=== PATIENT | female | born 2005 | race Caucasian/White ===

== ENCOUNTER 2025-01-23 23:27 | Inpatient (IN) | payer BC ==
[~2025-01-23] VITALS: Ht 160 cm; Wt 54.6 kg
--- NOTE | 2025-01-24 00:02 | Physician Documentation ---
History of Present Illness Chief Complaint: Abdominal Pain Stated Complaint: REACTION TO MED Time Seen by MD: 23:57 HPI This is a very pleasant 19-year-old female with a known history of gastroparesis, who was discharged from [facility] earlier today after placing nasal jejunal catheter presents for evaluation of sudden onset right flank pain. No obvious trigger provocation. The particular palliating or aggravating factors were elicited with the patient. Pain is severe. Not migratory, not ripping, not tearing. Did not attempt to treat it. She does report her usual gastroparesis epigastric pain as well, however that is minor. She does report nausea. She feels that this is related to the antibiotics that she was receiving. Denies any chance of . Does not smoke, does not drink, does not do drugs Medication Reconciliation Allergies: Coded Allergies: metoclopramide (Verified Adverse Reaction, Unknown, 01/23/25) palpatations Review of Systems ROS 10 point review of systems was performed and unless noted above in HPI is negative for acute process/complaint. Physical Exam Vital Signs: Source: Temporal, Heart Rate: 99, Respiratory Rate: 15, BP: 123/82, Pulse Oximetry: 98, Weight: 57.450 Physical Exam GENERAL: Awake, alert, oriented, GCS 15, [id number] pain related distress, non-toxic appearing, answers questions, follows commands appropriately. Examined in bed 9., accompanied with a female mixer helper HEENT: Atraumatic, normocephalic, NJ-tube noted in right Nare, pupils equal, extraocular muscles intact, sclerae anicteric, mucus membranes moist, oropharynx is clear, no stridor. NECK: supple, full active range of motion, trachea midline, no thyromegaly, no lymphadenopathy, no JVD. CARDIOVASCULAR: regular rate/rhythm, no murmurs/gallops/rubs, Pulses are 2+ in all extremities and symmetric. Capillary refill less than 2 seconds. PULMONARY: Nonlabored, good air movement ,no respiratory distress, speaking in full sentences, clear to auscultation bilaterally, no wheezing, no ronchi, no rales, no accessory muscle use. GASTROINTESTINAL: Soft, epigastric tenderness to palpation without guarding or rebound, non-distended, normal active bowel sounds, no organomegaly, no pulsatile masses, no CVA tenderness. NEUROLOGIC: Lucid with normal mental status. Normal facial symmetry. Moves all extremities symmetrically and with purpose. No truncal ataxia. Speech is fluid without evidence of dysarthria or aphasia, no focal deficits appreciated. MUSCULOSKELETAL: There is full range of motion of all extremities. There is no joint pain or joint swelling or joint erythema. There is no muscle pain or tenderness or swelling. EXTREMITIES: warm, well-perfused, no cyanosis, no clubbing, no edema, no acute deformities. Skin: warm, dry, no rashes or lesions, no jaundice, no petechiae orpurpura. No ecchymosis. PSYCHIATRIC: Tearful affect, normal insight, normal concentration. Focused exam: [] Progress Results/Orders Results/Orders Orders - NATO DIAZ DO Amylase (01/23/25 23:57) Cbc/Diff (01/23/25 23:57) Lipase (01/23/25 23:57) Urinalysis, Cult If Indicated (01/23/25 23:57) MG (01/23/25 23:57) CMP (01/23/25 23:57) Hcg, Ur Ql (01/23/25 23:57) Hcg Serum Ql (01/23/25 23:57) Ondansetron Inj. (Zofran 4mg/2ml Vial) (01/24/25 00:00) Morphine 4mg/Ml Inj. (Morphine Inj.) (01/24/25 00:00) Drug Screen, Urine (01/23/25 23:57) Vital Signs 01/23/25 23:35 Pulse 99 Resp 15 B/P (MAP) 123/82 Pulse Ox 98 Medical Decision Making Findings Facility Status: ED Holds, [facility] process The plan was discussed with the patient, who demonstrates clear understanding of the plan and is in agreement with the plan unless otherwise noted in the chart. All questions have been answered, all concerns were addressed unless otherwise documented. I was available throughout their ED stay for frequent reassessment and questions . Differential Diagnoses (considered and possible or likely): [Differential diagnosis considered includes acute appendicitis, acute cholecystitis, pancreatitis, gastritis, PUD, diverticulitis, mesenteric ischemia, abdominal aortic aneurysm, bowel obstruction, enteritis, colitis, fecal impaction, volvulus, IBS, inflammatory bowel disease, specific food intolerance, peritonitis, perforated viscous, malignancy, UTI, abscess, and abdominal pain NOS. Pelvic source of pain was also considered including endometritis, dysmenorrhea, ovarian cyst, ovarian torsion, PID, TOA, cervicitis, vaginitis, or uterine fibroid. History, physical exam, and workup exclude many of the more serious causes listed above. ] ??Differential Diagnoses (considered and unlikely, not requiring evaluation currently): [Aortic/great vessels dissection was considered but it is unlikely based on absence of ripping, tearing, migratory chest pain, absence of syncope or focal neurologic deficits, physical examination indicating equal and symmetric pulses.] MDM Data Please see [facility] for the following: Independent Historians and external Records Re view. Historian: [Patient] Independent Historians: ?[Female mixer helper] Medication Management: [Reviewed medication list] Social History and determinants: [Reviewed] Please see the body of the note for the following: Any independent interpretations of ECG, imaging studies. All vitals signs/haemodynamics, ordered tests were independently reviewed and interpreted by myself. Nursing triage complaint and vitals reviewed, additional nursing notes were reviewed as available and I agree unless otherwise noted or documented in contradiction in the chart Vital Signs: Independently reviewed Labs: Independently interpreted Imaging: Independently interpreted Old Medical Records: Independently reviewed, see [facility] for relevant summary and information Pulse Oximetry: [97%] interpreted as [normal on room air] by me [Pelt Grader: [Regular Rate, Regular rhythm, no ectopy, NSR] reviewed and interpreted by me] Additionally notably showing: [Hemodynamics reviewed. Not febrile, not tachycardic, no evidence of hypotension respiratory distress. CBC is normal, however there is 91% neutrophils. Very mild anemia of 11.9. Normal platelets. Chemistry notable for glucose of 244 concerning for new onset diabetes. Lipase is also elevated concerning for mild pancreatitis. She isn't . UA shows glucose in the urine, no evidence of UTI. Toxicology is negative. Given persistent pain, based on shared decision-making with the patient, I made decision to obtain a CT of the abdomen and pelvis. It shows no acute disease. See the orders for] Tests considered but not ordered include: [see above] Social Determinants of Health Impact: Patient was evaluated in [facility] [place] to healthcare due to below par ratio of patient to medical providers. [] Comorbid Conditions Impacting Present Evaluation and Care/Treatment: [Known gastroparesis] Management Discussions with other Healthcare Providers: [Hospitalist regarding admission] Treatment and Disposition Medication Management (Given or considered): [Multiple rounds of pain management]. See EMR for details Consideration for Hospitalization/Escalation/Deescalation of Care: Admission for observation has been considered, for further management of her pain and workup of new onset diabetes. ?ED Course:?[No clinical improvement. Right upper quadrant ultrasound can be obtained during daylight hours on an inpatient side. Patient will require admission to Internal Medicine service for further evaluation and management of their disease process. The case was discussed with [resident] of the admitting service and they were made aware of all the patient's active issues, including the above-mentioned history, physical exam findings, and the diagnostic results, as well as our concerns and suspicions, as well as any possible incidental findings and pending test. They agreed with the admission plan to their service, and agreed to assume responsibility for the patient's ongoing care and management at that point in time. Patient was admitted in [] condition. ] ?Shared decision making:?[] Code status:?FULL Please see the full Electronic Medical Record for full details of nursing documentation, medications list, other records of complete past medical history and conditions, vital signs, laboratory studies, and any radiologic study interpretations by radiologists. Portions of this note were completed using [employer] dictation software and as a result there may exist minor errors in spelling. I have reviewed elements of past family and social history and agree as included in note. Departure Disposition: 09 ADMITTED INPATIENT Admitted to Inpatient Unit: to hospitalist Impression: Primary Impression: Diabetes mellitus, new onset Additional Impressions: Acute pancreatitis Acute right flank pain Intractable pain Condition: Stable Referrals: NO PRIMARY CARE PROVIDER (PCP) Signature Scribe Signature: No scribe Attestation: Date: Jan 24, 2025 Time: 00:02 This note accurately reflects clinical decisions, work performed by myself, Nato Diaz, NATO QUINN DO Jan 24, 2025 00:02
[2025-01-24] MEDS: morphine 4 MG/ML inj SYRINge IV ONE ×2 (00:12→03:37)
[2025-01-24] MEDS: ondansetron/PF 4mg/2ml inj IV ONE (00:13)
[2025-01-24 00:41] LABS: MEAN PLATELET VOLUME 9.2 FL (7.4-10.4); RED CELL DISTRIBUTION WIDTH 13.4 % (11.5-14.5)
[2025-01-24 00:55] LABS: CREATININE 0.55 MG/DL (0.40-0.90); TOTAL CARBON DIOXIDE 23.9 MMOL/L (24-32); eCRCL 142 ML/MIN; eGFR > 90 ML/MIN
[2025-01-24 01:49] LABS: URINE HCG NEGATIVE (NEG)
[2025-01-24 01:49] LABS: HCG SERUM QL NEGATIVE
[2025-01-24 02:00] LABS: URINE AMPHETAMINE SCREEN NEGATIVE (Neg); URINE BARBITUATE SCREEN NEGATIVE (Neg); URINE BENZODIAZEPINES SCREEN NEGATIVE (Neg); URINE CANNABINOID SCREEN NEGATIVE (Neg); URINE COCAINE SCREEN NEGATIVE (Neg); URINE METHADONE SCREEN NEGATIVE (Neg); URINE OPIATE SCREEN NEGATIVE (Neg); URINE PHENCYCLIDINE SCREEN NEGATIVE (Neg)
[2025-01-24 02:02] LABS: LEUKOCYTE ESTERASE ,URINE NEGATIVE (Neg); NITRITES, URINE NEGATIVE (Neg); OCCULT BLOOD,URINE TRACE-INTACT (Neg)
[2025-01-24 02:05] LABS: UA COLLECTION TYPE CLN CATCH MIDSTREAM
[2025-01-24 02:15] LABS: SQUAMOUS EPITHELIAL CELL,UR NONE SEEN /LPF (FEW)
[2025-01-24] MEDS ORDERED: iohexol 300mg/ml 100ml inj. ONE (02:34)
--- NOTE | 2025-01-24 03:15 | RADIOLOGY REPORT ---
Exam: CT CT ABDOMEN PELVIS W/ IV CONTRAST History: R flank pain COMPARISON: None Technique: Multidetector spiral CT of the abdomen and pelvis was performed from lung bases to pubic symphysis. Intravenous contrast was administered during this examination. Portal venous imaging was obtained. Axial, coronal and sagittal multiplanar reformats were performed by the technologist on a separate workstation. Radiation Dose : 1. Abdomen/Pelvis: CTDIvol 8 mGy, DLP 366 mGy*cm. Findings: Lower Chest: No acute findings. Liver: Diffuse hypoenhancement relative to the spleen. Gallbladder and Biliary Tree: Unremarkable Pancreas: Unremarkable. Spleen: Unremarkable Adrenal Glands: Unremarkable Kidneys: No acute finding. Fullness of the left renal collecting system without je hydronephrosis. Bladder: Unremarkable. Pelvic Organs: Physiologic right ovarian cyst. Unremarkable uterus and left ovary. Bowel: Enteric tube terminating at the 3rd duodenal segment. Surgical clips within the jejunum. Normal caliber without wall thickening. No evidence of appendicitis. Vasculature: Unremarkable. Lymphadenopathy: No evident adenopathy. Peritoneum: Physiologic volume of pelvic ascites. No free air or fluid collection. Abdominal Wall: No significant hernia. Musculoskeletal: No acute abnormality. IMPRESSION: 1. No acute abdominopelvic abnormality. 2. Enteric tube terminating in the distal duodenum. Surgical clips of proximal small bowel loops. Radiation optimization: All CT scans at this facility use at least one of these dose optimization techniques: automated exposure control mA and/or kV adjustment per patient size (includes targeted exams where dose is matched to clinical indication) or iterative reconstruction.
[2025-01-24] MEDS: normal saline 1000ml 1,000 ML IV ONE (03:49)
[2025-01-24] MEDS: fentaNYL/PF 50MCG/1 ML 2ML syringe IV ONE (04:28)
[2025-01-24] MEDS ORDERED: ondansetron/PF 4mg/2ml inj IV PRN (04:40)
[2025-01-24] MEDS ORDERED: potassium Cl 40MEQ/1/2NS 520ml 520 ML IV PRN (04:40)
[2025-01-24] MEDS ORDERED: potassium Cl 20 mEq SR tablet PO PRN ×2 (04:40)
[2025-01-24] MEDS ORDERED: magnesium sulf-water 4G/100mL 100 ML IV PRN (04:40)
[2025-01-24] MEDS ORDERED: magnesium Cl slow-release 64mg tablet PO PRN (04:40)
[2025-01-24] MEDS ORDERED: ondansetron 4mg rapidly disintigrating tab PO PRN (04:40)
[2025-01-24] MEDS ORDERED: HYDROmorphone/PF 0.2 MG/ML SYRINGE IV PRN (04:40)
[2025-01-24] MEDS ORDERED: mag hydrox/Alum hydrox/simeth 30ml oral suspension PO PRN (04:40)
[2025-01-24] MEDS ORDERED: magnesium sulf-water 2g/50mL 50 ML IV PRN (04:40)
[2025-01-24 05:46] LABS: CHOL/HDL RATIO 2.2 (0.00-4.99); LDL CHOLESTEROL 58 MG/DL (50-100)
--- NOTE | 2025-01-24 05:51 | HISTORY AND PHYSICAL-Residence ---
History & Physical Providers to CC Resident Creating Document: ALY EDWARDS, RES ~ History of Present Illness Reason for Admit\Complaint: Right flank pain History of Present Illness 19 years old female with past medical history of left renal vein compression and gastroparesis, anxiety comes to ED with severe right flank pain of 10/10 intensity in the beginning and now after fentanyl dose and morphine pain got subsided to 3/10, patient describes the pain is constant which is radiating to back and which is stabbing in nature, patient mentioned she has a history of gastroparesis an NG tube was placed on her at [facility] and he was prescribed erythromycin and she took 3 doses of erythromycin from past 2 days still her symptoms not resolved. She also complains of nausea and recent loss of weight about 20 lb from last 1 year She also complains of mild left flank she has not severe Patient denies any recent vomiting, fever, chills, urinary symptoms She also denies any history of kidney stones, urinary tract infections, high blood pressure, diabetes before Allergies: Coded Allergies: metoclopramide (Verified Adverse Reaction, Unknown, 01/23/25) palpatations Past Medical History Past Medical History Gastroparesis Left renal vein compression Past Surgical History Surgical History Comment No relevant past surgical history Past Social History Social History Comment Patient lives in her home with joycelyn, she is a student Her PCP She is nonalcohol, nonsmoker, not a drug user ROS ROS Constitutional: No fever, chills, dizziness, weakness, Eyes: No pain, erythema, discharge, blurring of vision ENT: No sore throat, epistaxis, tinnitus Cardiovascular: No chest pain, No current palpitations, syncope, lower extremity edema, paroxysmal nocturnal dyspnea Respiratory: No shortness of breath , No cough, hemoptysis Gastrointestinal: Patient has a history of gastroparesis, she he reports nausea, no vomiting. Genitourinary: Patient complains of right flank pain radiating to back, No frequency,urgency,No nocturia, hematuria or dysuria Integumentary: No change in skin, hair, nails. No swelling, bruising, abrasions Neurologic: patient didnot report any symptoms Psychiatric: No delusions, loss of interest in normal activity or change in sleep pattern, hallucinations, suicidal ideations Endocrine: Patient report 20 lb weight loss since 1 year, No fatigue, weakness, polydipsia, polyuria, change in appetite, heat or cold intolerance, sweating, dry skin Hematological: No bleeding, petechiae, noted some bruises on left hand Allergies: No asthma or urticaria Exam Vitals: Vital Signs Date Time Temp Pulse Resp B/P (MAP) Pulse Ox O2 Delivery O2 Flow Rate FiO2 01/24/25 04:20 82 18 98/67 (77) 96 01/24/25 01:00 98.6 General: Patient is,alert, orientedx4 , HEENT: Normocephalic and atraumatic, Oral and nasal mucosa is moist. No visible head injuries Neck: Trachea is in midline. No masses or JVD Chest: Normal air movement bilaterally , Bilateral normal breath sounds. No crackles, rhonchi or wheezes Cardiovascular: Regular rate and regular rhythm. S1-S2 normal. No rubs or murmurs Abdomen and genitourinary: Patient reports right flank pain which is radiating to back and it is not tender to touch, mild left flank pain ,Normoactive bowel sounds Extremities: No cyanosis, clubbing or edema, No deformities, peripheral pulses 2+ LOCKSTITCH FRONT EDGE TAPE SEWER: Patient is alert , awake, speech is clear CN II-XII - intact Normal Tone and Bulk in all extremities Sensation is intact in all extremities Co-ordination is intact Skin: warn and dry Diagnostic Data Last Recorded Lab Results: 01/24/25 0025 01/24/25 0025 Advance Care Planning Advanced Care plannin - 30 Minutes Additional Plan 19 years old female with history of gastroparesis with NG tube, left renal vein compression, anxiety comes to ED he is currently evaluated for severe right flank pain Right flank pain The patient has a history of gastroparesis with NG tube, left renal vein he has presented to the ED with right flank pain of 10/10 radiating to back Differentials include: Bilateral renal vein compression consider ordering duplex ultrasound of kidney Ovarian torsion Renal calculi BP-98/67, pulse-80, SpO2-96, temperature-98.6 H&H-11.9/35.2, WBC-8.3, Na-140, K-3.6, bicarb-23.9, glucose-244, lipase-99 Urine tox-negative Urine analysis-positive for glucose 250H Lipid panel-normal CT abdomen/pelvis shows No acute abdominopelvic abnormality.. Enteric tube terminating in the distal duodenum. Surgical clips of proximal small bowel loops. Plan: Pain control with morphine p.r.n. Follow-up with US pelvis/with a duplex Started NS 75 mL per hour for 4 hours-reassess volume status of the patient again Follow up with CBC/CMP/ESR/CRP Consider ordering duplex ultrasound of kidney Gastroparesis S/P NG tube: Patient has a long history of gastroparesis for which he underwent NG tube at [facility], she also took 3 doses of Erythromycin before coming to the hospital Plan: Continue Zofran p.r.n. Hyperglycemia Patient has no prior history of diabetes Blood glucose-244, urine glucose-250 Plan Follow-up with HbA1c Code: Full Pain control: Morphine p.r.n. Aly Edwards PGY1-Internal Medicine Resident Plan reviewed with bedside team. Patient seen through remote audiovisual assessment through HIPAA compliant setup. All labs, flowsheets, and images reviewed Cumulative nonprocedural care time spent in directed patient care = 30 min Date of Service: Jan 24, 2025 Billing Provider: GELY NAVARRETE MD, SATISH, RES Jan 24, 2025 05:51 GELY NAVARRETE MD Jan 24, 2025 08:17
[2025-01-24] MEDS ORDERED: BUSP10TA11 PO (06:26)
[2025-01-24] MEDS ORDERED: HYDR-3686 PO (06:26)
[2025-01-24] MEDS ORDERED: ACET-1008 PO (06:26)
[2025-01-24] MEDS ORDERED: ONDA-243 PO (06:26)
[2025-01-24] MEDS ORDERED: CALC500T13 PO (06:26)
[2025-01-24 06:36] LABS: ETHANOL < 10 MG/DL (<10)
[2025-01-24] MEDS: normal saline 1000ml 1,000 ML IV SCH (07:25)
[2025-01-24 08:00] VITALS: BP 125/70; PULSE 72; RESP 14; TEMP 97.3; O2SAT 100
[2025-01-24] MEDS: K and/or MAG REPLACEMENT MC SCH (08:00)
--- NOTE | 2025-01-24 08:04 | RADIOLOGY REPORT ---
Pelvic ultrasound HISTORY: possible ovarian torsion Technique: 2-D real-time ultrasound was performed with sagittal and axial images submitted for evaluation. Images were obtained transabdominally and transvaginally. FINDINGS: Uterus measures 8.6 x 3.5 x 4.3 cm with an endometrial thickness of 3.5 mm. Right ovary 2.6 x 3.2 x 2.1 cm. Positive flow to the right ovary. Simple cyst right ovary measures 1.4 x 1.5 x 1.6 cm Left ovary 3 by 2.5 x 2.2 cm. Positive flow to left ovary. Subcentimeter cyst in left ovary. There is flow to both ovaries. There is a minimal amount of free fluid in the cul-de-sac. IMPRESSION: 1. Normal appearance of the uterus and ovaries. 2. Flow to both ovaries. 3. Small amount of free fluid in the cul-de-sac etiology indeterminate
[2025-01-24] MEDS: docusate sod 100mg capsule PO SCH (09:24)
[2025-01-24] MEDS: magnesium hydroxide 30ml (MOM) UD suspension PO PRN (09:24)
[2025-01-24 11:00] VITALS: BP 124/68; PULSE 78; RESP 16; RESP 18; TEMP 97.7; O2SAT 100; O2SAT 98
[2025-01-24] MEDS ORDERED: acetaminophen 325mg/10.15ml oral unit dose solution CORPAK PRN (13:30)
[2025-01-24] MEDS ORDERED: magnesium hydroxide 30ml (MOM) UD suspension CORPAK PRN (13:31)
[2025-01-24] MEDS ORDERED: mag hydrox/Alum hydrox/simeth 30ml oral suspension CORPAK PRN (13:31)
[2025-01-24] MEDS ORDERED: ondansetron 4mg rapidly disintigrating tab CORPAK PRN (13:33)
[2025-01-24] MEDS ORDERED: POTASSIUM CHLORIDE 20 MEQ/15 ML oral solution CORPAK PRN (13:35)
[2025-01-24] MEDS: acetaminophen 325mg/10.15ml oral unit dose solution CORPAK PRN (16:17)
[2025-01-24] MEDS: calcium carbonate 500mg chew tablet CORPAK SCH (17:30)
[2025-01-24 18:00] VITALS: BP 105/62; PULSE 69; RESP 16; TEMP 98.8; O2SAT 98
[2025-01-24] MEDS: docusate sodium 100mg/10ml UD cup CORPAK SCH (19:28)
--- NOTE | 2025-01-24 21:46 | PROGRESS NOTE ---
Daily Progress Note Providers to CC ~ Antibiotic Timeout Antibiotic Ordered?: No Subjective The patient has pain in his improved in his hoping to go home she did informed me the GI a [facility] offered her Botox injections however the patient states she does not have money for gas to get to [facility] every three months. I spoke with Dr. Lowry rug dyer helper who will evaluate in the morning and requested records from [facility] Objective Vital Signs Date Time Temp Pulse Resp B/P (MAP) Pulse Ox O2 Delivery O2 Flow Rate FiO2 01/24/25 11:00 97.7 78 16 124/68 (86) 100 Room Air 01/24/25 11:00 0.0 Result Diagram: 01/24/252401/24/2524 Gen. No acute distress alert and oriented 4 Lungs clear to ascultation bilaterally, no wheezes rales or rhonchi appreciated Heart normal sinus rhythm no murmurs rubs or clicks noted Abdomen soft nontender bowel sounds are normoactive Lower extremities no clubbing cyanosis, nor edema appreciated bilaterally Problem\Assessment\Plan # right flank pain Unknown etiology possibly secondary to muscle spasm Has since resolved Ultrasound is negative for ovarian torsion # gastroparesis- Followed at [facility] Has a Corpak feeding tube in place with a backpack with a feeding pump Dr Lowry rug dyer helper we will consult on the patient # hyperglycemia- likely secondary to a stress reaction Blood glucose this evening is 112 Hemoglobin A1c is 4.7 Date of Service: Jan 24, 2025 Billing Provider: GERARDO OROZCO DO Common Visit Codes: NOT BILLABLE (Not billable admitted after midnight to be billed by treasury analyst) GERARDO OROZCO DO Jan 24, 2025 21:46
[2025-01-24 22:00] VITALS: BP 122/76; PULSE 98; RESP 20; TEMP 98; O2SAT 94
[2025-01-25] MEDS: diazepam 2mg tablet PO ONE (00:08)
[2025-01-25 06:00] VITALS: BP 103/69; PULSE 91; RESP 20; TEMP 97.8; O2SAT 97
[2025-01-25 06:43] LABS: MEAN PLATELET VOLUME 9.6 FL (7.4-10.4); RED CELL DISTRIBUTION WIDTH 13.8 % (11.5-14.5)
[2025-01-25 06:55] LABS: CREATININE 0.67 MG/DL (0.40-0.90); TOTAL CARBON DIOXIDE 29.8 MMOL/L (24-32); eCRCL 112 ML/MIN; eGFR > 90 ML/MIN
[2025-01-25 08:00] VITALS: RESP 20; O2SAT 97
[2025-01-25] MEDS: POTASSIUM CHLORIDE 20 MEQ/15 ML oral solution CORPAK PRN (08:44)
[2025-01-25 10:00] VITALS: BP 108/73; PULSE 80; RESP 16; TEMP 97.7; O2SAT 99
[2025-01-25] MEDS ORDERED: POTA-207 PO (11:54)
--- NOTE | 2025-01-25 20:09 | DISCHARGE SUMMARY ---
Discharge Summary Providers to CC ~ Discharge Summary Admission Diagnosis: ABDOMINAL PAIN Hospital Course DATE OF ADMISSION: 01/24/2025 DATE OF DISCHARGE: 01/25/2025 Discharge Diagnosis\\Comment: Right flank pain, gastroparesis, pancreatitis mild, hyperglycemia, hypokalemia Operations\\Procedures: None Consultants: None Complications: None Condition on DC: Stable New Medications: Potassium Chloride* (K-Dur*) 20 Meq Tab.prt.sr 1 TAB PO DAILY, #30 TAB Continued Medications: Acetaminophen (Tylenol) 325 Mg Tablet 1 TAB PO QDAY PRN PRN for pain or fever for 30 Days, #30 TAB Buspirone Hcl* (Buspar*) 10 Mg Tablet 1 TAB PO Q12H for 30 Days, #60 TAB Calcium Carbonate (Tums) 200 Mg Calcium (500 Mg) Tab.chew 2 TAB PO Q6H for 7 Days, #56 TAB 0 Refills Hydroxyzine Hcl (Atarax) 25 Mg Tablet 1 TAB PO Q12H for anxiety for 30 Days, #60 TAB 0 Refills ONDANSETRON ODT 4mg tablet (Ondansetron Odt) 4 Mg Tab.rapdis 4 MG PO, TAB Discharge Summary: The patient is admitted by resident physician GLENN Kyle , under the supervision of GELY Acosta MD with the following HPI:"19 years old female with past medical history of left renal vein compression and gastroparesis, anxiety comes to ED with severe right flank pain of 10/10 intensity in the beginning and now after fentanyl dose and morphine pain got subsided to 3/10, patient describes the pain is constant which is radiating to back and which is stabbing in nature, patient mentioned she has a history of gastroparesis an NG tube was placed on her at [facility] and he was prescribed erythromycin and she took 3 doses of erythromycin from past 2 days still her symptoms not resolved. She also complains of nausea and recent loss of weight about 20 lb from last 1 year She also complains of mild left flank she has not severe Patient denies any recent vomiting, fever, chills, urinary symptoms She also denies any history of kidney stones, urinary tract infections, high blood pressure, diabetes before." The patient is flank pain had resolved by time I evaluated her the patient felt that the flank pain started after taking erythromycin may has been related to muscle spasm as well however the patient did not have any flank pain when I evaluated her on the morning of the . The patient has a mild pancreatitis on admission with a lipase of 77. The patient has mild hypokalemia serum potassium of 3.3 on the day discharge and was prescribed KCl 20 mEq daily we will have recommendations rechecking a ak tabolic panel in one-week. The patient has chronic gastroparesis and has a Corpak feeding tube and a pump and a backpack with her tube feeds. I spoke with Dr. Nato Braxton bariatric surgeon and gastroparesis specialist who has a agreed to follow the patient in the outpatient setting in his office. The patient is grandmother was at bedside when I evaluated her on the and the patient was ready to be discharged. Gen. No acute distress alert and oriented 4 Lungs clear to ascultation bilaterally, no wheezes rales or rhonchi appreciated Heart normal sinus rhythm no murmurs rubs or clicks noted Abdomen soft nontender bowel sounds are normoactive Lower extremities no clubbing cyanosis, nor edema appreciated bilaterally The patient felt ready to be discharged and was medically cleared to be discharged on 01/25/2025 The patient was seen and evaluated on day of discharge. Time spent on discharge 35 minutes *Problems/Diagnosis: (1) Hypokalemia Total Time Spent on D/C: > 30 Minutes Date of Service: Jan 25, 2025 Billing Provider: GERARDO OROZCO DO Common Visit Codes: 89282-BGT/OBS DISCH DAY >30min GERARDO OROZCO DO Jan 25, 2025 20:09
== END 2025-01-25 12:30 | disposition home or self-care (01) | DRG 440 ==
LOC: ER 23:28 → ED HOLD 01-24 04:44 → ORTHO 4S 01-24 07:42
PROVIDERS: ADMIT Internal Medicine Critical Care Medicine; ATTEND Family Medicine
PROC: BW211ZZ Computerized Tomography (CT Scan) of Abdomen and Pelvis using Low Osmolar Contrast (ICD-10-PCS; principal; 2025-01-24)
DX: K85.90 Acute pancreatitis without necrosis or infection, unspecified (principal); E11.43 Type 2 diabetes mellitus with diabetic autonomic (poly)neuropathy; K31.84 Gastroparesis; E87.6 Hypokalemia; F41.9 Anxiety disorder, unspecified; E11.65 Type 2 diabetes mellitus with hyperglycemia; Z88.8 Allergy status to other drugs, medicaments and biological substances
CPT/HCPCS: 36415; 74177; 76856; 80053; 80061; 80305; 80320; 81001; 81025; 82150; 82948; 83036; 83690; 83735; 84703; 85025; 85651; 86140; 87081; 93976; 99285; A6250; G0378; J2270; J2405; J3010; J7030; Q9967

== ENCOUNTER 2025-02-09 15:16 | Emergency (ER) | payer BC ==
[~2025-02-09] VITALS: Ht 162.6 cm; Wt 57.7 kg
[~2025-02-09 15:16] MED LIST: ACET-1008 PO; BUSP10TA11 PO; CALC500T13 PO; HYDR-3686 PO; ONDA-243 PO; POTA-207 PO
[2025-02-09 15:48] VITALS: BP 109/82; PULSE 90; RESP 18; TEMP 98.9; O2SAT 100
--- NOTE | 2025-02-09 16:35 | RADIOLOGY REPORT ---
Indication: Possible displacement of NG tube Technique: DI ABDOMEN,SINGLE VIEW(KUB)[id number] Comparison: 01/24/2025m FINDINGS/IMPRESSION: The nasogastric ng tube projects towards the stomach. Moderate volume stool in the colon. Calcified /radiopaque structure in the lower abdomen / pelvis measuring 2 cm, unknown etiology. Please correlate to exclude any type of foreign body.
--- NOTE | 2025-02-09 17:13 | Physician Documentation ---
History of Present Illness ~ Chief Complaint: See Chief Complaint Stated Complaint: NG TUBE COMPLICATIONS Time Seen by MD: 16:09 HPI This is a 19-year-old female with a history of gastroparesis who presents with concern for NG tube displacement, patient is seen at [facility] where she had NG tube placed, patient reports that the tube was accidentally pulled approximately 2 in and was told by the case management and nurse at [facility] to present to the emergency department to confirm that it was still in place. Reports that she is still able to drink fluids and keep small amounts of food down, patient reports that she has not had any complications while using the NG tube for feeds. Medication Reconciliation Allergies: Coded Allergies: metoclopramide (Verified Adverse Reaction, Unknown, 02/09/25) palpatations Scheduled Buspirone Hcl* (Buspar*), 1 TAB PO Q12H, (Reported) Calcium Carbonate (Tums), 2 TAB PO Q6H, (Reported) Hydroxyzine Hcl (Atarax), 1 TAB PO Q12H, (Reported) Potassium Chloride* (K-Dur*), 1 TAB PO DAILY Scheduled PRN Acetaminophen (Tylenol), 1 TAB PO QDAY PRN PRN for pain or fever, (Reported) Miscellaneous Medications ONDANSETRON ODT 4mg tablet (Ondansetron Odt), 4 MG PO, (Reported) Past Medical History Patient History: Patient reports no known family medical history. Review of Systems ROS As stated above in the HPI, otherwise all systems are reviewed and negative. Physical Exam Vital Signs: Temperature: 98.9, Source: Temporal, Heart Rate: 90, Respiratory Rate: 18, BP: 109/82, Pulse Oximetry: 100, Weight: 57.730 Physical Exam VITALS: Reviewed and as above. GENERAL: Alert, nontoxic appearing, no apparent distress. HEENT: NG tube in right nare RESPIRATORY: No increased work of breathing, no respiratory distress, speaking in full clear sentences Progress Progress Note 1604: I spoke with the case coordinator at [facility] who reports patient was directed to the emergency department due to concern of displaced nasogastric tube with previous placement in the duodenum. I discussed radiology findings with case coordinator who agreed to contact on-call GI provider for consultation. 1642: I received a return call from [facility] case coordinator who reports per on-call GI provider Dr. Samson as long as patient is asymptomatic she could continue to utilize the gastric tube on the slow feeding setting and patient can follow up outpatient with [facility]. Results/Orders Results/Orders Orders - LILIANA CASTANON CORDWAINER Abdomen,Single View(Kub) (02/09/25 16:13) Completed Orders - LILIANA CASTANON CORDWAINER Abdomen,Single View(Kub) (02/09/25 16:13) Vital Signs 02/09/25 15:48 Temp 98.9 Pulse 90 Resp 18 B/P (MAP) 109/82 Pulse Ox 100 EKG/XRAY/CT/US/VASC/MRI Abdominal X-Ray : Additional Comment Exam: ABDOMEN,SINGLE VIEW(KUB) Indication: Possible displacement of NG tube Technique: DI ABDOMEN,SINGLE VIEW(KUB)[id number] Comparison: 01/24/2025m FINDINGS/IMPRESSION: The nasogastric ng tube projects towards the stomach. Moderate volume stool in the colon. Calcified /radiopaque structure in the lower abdomen / pelvis measuring 2 cm, unknown etiology. Please correlate to exclude any type of foreign body. Electronically Signed by:FORTINO MONTAGUE MD Date & Time: 02/09/251635 Dictated by: FORTINO MONTAGUE MD Dictation date and time: 02/09/251635 I have reviewed and agree with the radiology report. I have reviewed and interpreted the imaging as: Tip of NG tube appears to be in area of stomach. 2 cm radiopaque structure at base of abdomen/pelvis noted and suspected to be a but from patient's clothing based on physical exam. Medical Decision Making Findings This 19-year-old female with a history of gastroparesis presented with concern for displaced nasogastric tube, nasogastric tube has been placed by [facility] for gastroparesis. Patient reports that she had accidentally pulled it out approximately 2 inches though otherwise she is asymptomatic and reports being able to maintain oral fluid intake and eat small amounts of food without complication, additionally patient reports that she has utilized the NG tube for feeding since pulling the tube out and reports no complications. A KUB was obtained indicating tip of gastric tube was in the stomach and not the duodenum as previously placed. I spoke with [facility] who per report of case coordinator on behalf of on-call GI provider indicated patient could continue to utilize gastric tube on the slow feeding setting as long as she tolerated and was tolerating oral intake. As patient is otherwise well-appearing with no reported complications she is appropriate for outpatient follow up with [facility]. Patient provided return to care precautions, home care instructions to include using gastric tube on slow setting, and follow up instructions which she verbalized understanding of. Diff Dx N/V/D:Considerations: Include: Bowel obstruction, Dehydration, Gastroenteritis, Hypovolemia, Malnutrition, Other (Displaced gastric tube) Departure Time of Disposition: 17:11 Disposition: 01 HOME / SELF CARE / HOMELESS Impression: Primary Impression: Encounter for imaging study to confirm nasogastric (NG) tube placement Condition: Improved Additional Instructions: The tube appears to still be in your stomach and in discussion with a clinic at [facility] you still a use the tube as long as you feet on slow, please return to the emergency department if you develop complications with the feeding or have persistent vomiting or your unable to keep fluids down. Otherwise please follow up with GI clinic at [facility]. Please also follow up with your primary care provider in the next few days. Please return to the emergency department for any new or worsening concerning symptoms. Referrals: NO PRIMARY CARE PROVIDER (PCP) Education Educated: Patient Educated regarding: diagnosis, treatment, prognosis, need for follow up Signature Scribe Signature: No scribe Attestation: The note accurately reflects work and decisions made by me.SHRUTHI Chahal 02/09/25 20:37 LILIANA CASTANON Feb 09, 2025 17:13
== END 2025-02-09 17:31 | disposition home or self-care (01) ==
LOC: ER 15:17
DX: Z46.59 Encounter for fitting and adjustment of other gastrointestinal appliance and device (principal); Z88.8 Allergy status to other drugs, medicaments and biological substances; Z79.899 Other long term (current) drug therapy
CPT/HCPCS: 74018; 99283